=== PATIENT | male | born 1970 | race African-American/Black ===

== ENCOUNTER 2017-04-17 14:07 | Emergency (ER) | payer SELFPAY ==
[2017-04-17 14:46] VITALS: BP 150/101
--- NOTE | 2017-04-17 15:14 | ER Document Report ---
ED Oral Problem - General Chief Complaint: Toothache Stated Complaint: TOOTH PAIN Mode of Arrival: Ambulatory Information source: Patient TRAVEL OUTSIDE OF THE [place] IN LAST 30 DAYS: No - HPI Patient complains to provider of: Toothache Onset: Last week Onset: Gradual Quality of pain: Achy Severity: Moderate Context: Fractured tooth Associated symptoms: Toothache. denies: Chills, Cough, Decreased appetite, Difficulty speaking, Drainage, Drooling, Earache, Facial pain, Fever, Headache, Jaw pain, Short of breath, Sweaty, Tongue swelling, Unable to swallow, White patches in mouth Worsened by: Heat Relieved by: Nothing Similar symptoms previously: Yes Notes: Patient arrives with complaints of right lower dental pain for the last week. States that this tooth has a crack in it it has been hurting him since that time. He has a dentist which she has an appointment with in 2 weeks. He denies any difficulty breathing or swallowing. No nausea, vomiting, diarrhea. No fever. Said some intermittent headaches to the right side of his head as well. No headache now. No blurred or loss vision. No numbness, tingling, weakness. No neck stiffness. No blood thinners. He denies any other complaints at this time. - Related Data Allergies/Adverse Reactions: No Known Allergies Allergy (Verified 04/17/17 14:43) Past Medical History - Social History Smoking Status: Never Smoker Family History: Reviewed & Not Pertinent Patient has suicidal ideation: No - Past Medical History Cardiac Medical History: Reports: Hx Hypertension Renal/ Medical History: Denies: Hx Peritoneal Dialysis - Immunizations Hx Diphtheria, Pertussis, Tetanus Vaccination: Yes Review of Systems - Review of Systems -: Yes All other systems reviewed and negative Physical Exam - Vital signs Vitals: Temp Pulse Resp BP Pulse Ox 99.6 F 78 16 150/101 H 98 04/17/17 14:43 04/17/17 14:43 04/17/17 14:43 04/17/17 14:43 04/17/17 14:43 - Notes Notes: GENERAL: alert, cooperative, nontoxic, no distress. HEAD: normocephalic, atraumatic EYES: conjunctiva pink without discharge, no external redness or swelling. EARS: no external swelling, no external redness. TMs are normal. No redness or swelling. No redness or swelling to the mastoid. NOSE: atraumatic, no external swelling MOUTH/THROAT: mucous membranes moist and pink. Large Mat[place] noted in the right lower first molar. There is no gum swelling or abscess noted. No sublingual swelling or induration. No sign of Nahum's angina. No trismus or drooling. NECK: soft, supple, full range of motion, no meningismus. CHEST: no distress, lungs clear and equal throughout. No wheezing, rales, rhonchi. CARDIAC: regular rate and rhythm, no murmur, normal capillary refill, normal pulses. BACK: full range of motion, no CVA tenderness. EXTREMITIES: full range of motion of all extremities. No redness, no swelling. NEURO: alert and oriented 3, no focal deficits, full range of motion of all extremities. PYSCH: appropriate mood, affect. Patient is cooperative. SKIN: pink, warm, dry, no rash. Course - Re-evaluation Re-evalutation: 04/17/17 15:11 Patient is nontoxic. Stable vitals. The patient has dental pain 1 week. He has a tooth that has an obvious carry. There is no obvious abscess noted. No distress. No difficulty breathing or swallowing. The patient will be discharged home with [facility]. He was instructed to follow-up with his dentist as scheduled in 3 weeks. Follow-up sooner for increased pain, fever, numbness, tingling, weakness, any further concerns. The patient's emergency department workup and current diagnosis were explained to the patient and or family. Follow-up instructions were provided. Medications if prescribed were discussed. Instructions for when to return to the emergency department including specific worrisome symptoms were discussed with the patient and/or family. - Vital Signs Vital signs: Temp Pulse Resp BP Pulse Ox 99.6 F 78 16 150/101 H 98 04/17/17 14:43 04/17/17 14:43 04/17/17 14:43 04/17/17 14:43 04/17/17 14:43 Discharge - Discharge Clinical Impression: Dental caries Condition: Stable Disposition: HOME, SELF-CARE Instructions: [facility], Penicillin V K ([facility]) Additional Instructions: Take medications as prescribed. See her dentist as scheduled in 3 weeks. Follow-up sooner for increased pain, fever, swelling, difficulty breathing or swallowing, or any further concerns. Prescriptions: Diclofenac Sodium [Voltaren 50 Mg Tablet.] 50 mg PO BID PRN #20 tablet. PRN Reason: Penicillin V Potassium [Penicillin Vk 500 mg Tablet] 500 mg PO BID #20 tablet Forms: Elevated Blood Pressure Referrals: [facility] [Provider Group] - Follow up as needed
== END 2017-04-17 15:29 ==
LOC: ER 14:07
DX: K02.9 Dental caries, unspecified (principal); K08.89 Other specified disorders of teeth and supporting structures
CPT/HCPCS: 99282

== ENCOUNTER 2017-08-28 20:52 | Emergency (ER) | payer SELFPAY ==
[2017-08-28] MEDS ORDERED: HYDROMORPHONE HCL INJ/PF 2 MG/ML AMPULE IV ONE (21:03)
[2017-08-28] MEDS ORDERED: ONDANSETRON HCL INJ/PF 4 MG/2 ML SDV IV ONE ×2 (21:03→23:28)
[2017-08-28] MEDS ORDERED: RINGERS SOLUTION,LACTATED 1,000 ML IV ONE (21:04)
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
[2017-08-28] MEDS ORDERED: ONDANSETRON HCL INJ/PF 4 MG/2 ML SDV ONE ×2 (21:06→23:30)
[2017-08-28] MEDS ORDERED: HYDROMORPHONE HCL INJ/PF 2 MG/ML AMPULE ONE (21:06)
[2017-08-28] MEDS ORDERED: FENTANYL CITRATE INJ/PF 100 MCG/2 ML AMPUL IV ONE ×2 (21:35→23:28)
[2017-08-28 23:13] VITALS: BP 137/98
[2017-08-28] MEDS ORDERED: FENTANYL CITRATE INJ/PF 100 MCG/2 ML AMPUL ONE (23:30)
== END 2017-08-28 23:30 | disposition short-term general hospital (02) ==
LOC: ER 20:52
DX: T25.221A Burn of second degree of right foot, initial encounter (principal); T23.242A Burn of second degree of multiple left fingers (nail), including thumb, initial encounter; X12.XXXA Contact with other hot fluids, initial encounter; Y93.G3 Activity, cooking and baking; T31.0 Burns involving less than 10% of body surface; F17.200 Nicotine dependence, unspecified, uncomplicated; I10 Essential (primary) hypertension
CPT/HCPCS: 96376; 99285; 96375; 96365; J3010; J1170; J2405; J7120

== ENCOUNTER 2017-12-10 09:24 | Emergency (ER) | payer MEDICAID ==
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
[2017-12-10] MEDS ORDERED: LIDOCAINE 2% VISCOUS SOLN 20 ML UDCUP PO ONE (09:42)
[2017-12-10 09:47] VITALS: BP 159/102
== END 2017-12-10 09:52 | disposition home or self-care (01) ==
LOC: ER 09:24
DX: K02.9 Dental caries, unspecified (principal); K05.10 Chronic gingivitis, plaque induced; K08.89 Other specified disorders of teeth and supporting structures; I10 Essential (primary) hypertension; Z79.899 Other long term (current) drug therapy
CPT/HCPCS: 99282; J3490